=== PATIENT | female | born 1965 | race Caucasian/White ===

== ENCOUNTER 2018-11-02 14:14 | Emergency (ER) | payer BC ==
[2018-11-02 14:46] LABS: Absolute Lymphocytes (CBC) 2.4 K/uL (0.7-4.9); Absolute Monocytes 0.5 K/uL (0.1-1.3); Absolute Neutrophil 3.2 K/uL (1.8-8.0); Eosinophils % 0.6 % (0-4.4); Hematocrit 42.5 % (36.0-45.0); Lymphocytes % 38.8 % (15.3-44.8); MPV 8.5 fL (7.6-11.3); Monocytes % 8.2 % (3.3-12.3); RBC Red Blood Cell Count 4.43 M/uL (3.86-4.86)
[2018-11-02] MEDS ORDERED: MORPHINE 4 MG/ML SYR ONE (14:52)
[2018-11-02] MEDS ORDERED: ONDANSETRON 4 MG/2 ML VIAL ONE (14:52)
[2018-11-02 15:02] LABS: Potassium 4.4 mmol/L (3.5-5.1)
--- NOTE | 2018-11-02 15:29 | RAD REPORT ---
EXAM DESCRIPTION: CT - Stone Protocol - 11/02/2018 3:20 pm CLINICAL HISTORY: Flank pain. ABD PAIN COMPARISON: No comparisons TECHNIQUE: Axial images were obtained without oral or IV contrast. Lack of contrast limits solid org an and vascular assessment. The [id number] spans the entirety of the system partially obscuring uppermost abdomen and lung bases. Coronal reformatted images were obtained and reviewed. All CT scans are performed using dose optimization technique as appropriate and may include automated exposure control or mA/KV adjustment according to patient size. FINDINGS: The lower lung britt are clear. Postsurgical changes affect the stomach. Imaged portions of the liver and spleen show no suspicious findings on non-contrast imaging. The panc reas and adrenal glands are normal. No pathologic lymphadenopathy in the abdomen or pelvis. Bilateral caliceal stones are present including a group of stones in the superior posterior calyx rig ht kidney. No ureter stone or significant hydronephrosis. No bowel obstruction, free air, free fluid or abscess. Normal appendix. No significant bony abnormality. IMPRESSION: Bilateral nephrolithiasis without hydronephrosis.
--- NOTE | 2018-11-02 15:48 | ER ---
Nurse's Notes [facility] Name: Keisha Alves Age: 53 yrs Sex: Female : 1965 Arrival Date: 11/02/2018 Time: 14:16 Bed 16 Private MD: Diagnosis: Lower abdominal pain, unspecified Presentation: 11/02 14:20 Presenting complaint: Patient states: Sudden onset left lower abd pain, hx of frequent la1 kidney stones. Transition of care: patient was not received from another setting of care. Onset of symptoms was November 02, 2018. Risk Assessment: Do you want to hurt yourself or someone else? Patient reports no desire to harm self or others. Initial Sepsis Screen: Does the patient meet any 2 criteria? No. Patient's initial sepsis screen is negative. Does the patient have a suspected source of infection? No. Patient's initial sepsis screen is negative. Care prior to arrival: None. 14:20 Method Of Arrival: Wheelchair la1 14:20 Acuity: JAGRUTI 3 la1 Historical: - Allergies: 14:19 Tape; la1 14:19 Kenalog; la1 14:19 NSAIDS; la1 - PMHx: 14:19 High Cholesterol; Kidney stones; la1 - Immunization history:: Adult Immunizations up to date. - Social history:: Smoking status: Patient/guardian denies using tobacco. - Ebola Screening: : No symptoms or risks identified at this time. Screenin:01 Abuse screen: Denies threats or abuse. Denies injuries from another. Nutritional aj screening: No deficits noted. Tuberculosis screening: No symptoms or risk factors identified. Fall Risk None identified. Assessment: 14:52 General: Appears in no apparent distress. comfortable, Behavior is calm, cooperative, aj appropriate for age. Pain: Denies pain. Neuro: Level of Consciousness is awake, alert, obeys commands, Oriented to person, place, time, situation, Appropriate for age. Respiratory: Airway is patent Respiratory effort is even, unlabored, Respiratory pattern is regular, symmetrical. GI: Abdomen is non-distended, Bowel sounds present X 4 quads. Abd is soft and non tender. GI: Reports lower abdominal pain, nausea. Derm: Skin is intact, is healthy with good turgor, Skin is pink, warm \T\ dry. normal. Vital Signs: 14:20 BP 122 / 86; Pulse 97; Resp 18; Temp 98.6; Pulse Ox 98% on R/A; Weight 57.61 kg; Height la1 5 ft. 2 in. (157.48 cm); Pain 10/10; 16:01 BP 109 / 76; Pulse 78; Resp 19; Pulse Ox 99% on R/A; aj 14:20 Body Mass Index 23.23 (57.61 kg, 157.48 cm) la1 ED Course: 14:16 Patient arrived in ED. as 14:20 Aida Mcdonald FNP-C is [facility]. kb 14:20 Rajan Frye MD is Attending Physician. kb 14:21 Triage completed. la1 14:21 Arm band placed on right wrist. la1 14:25 Roselia Landers, RN is Primary Nurse. aj 14:47 Inserted saline lock: 20 gauge in left antecubital area, using aseptic technique. Blood aj collected. By Matilde Bean. 15:19 CT completed. Patient tolerated procedure well. Patient moved back from CT. mw3 15:19 CT Stone Protocol In Process Unspecified. EDMS 16:01 Patient has correct armband on for positive identification. aj 16:01 No provider procedures requiring assistance completed. IV discontinued, intact, aj bleeding controlled, No redness/swelling at site. Pressure dressing applied. Administered Medications: 14:43 Drug: Zofran 4 mg Route: IVP; Site: left antecubital; aj 16:04 Follow up: Response: Pain is decreased aj 14:44 Drug: morphine 4 mg Route: IVP; Site: left antecubital; aj 16:05 Follow up: Response: Pain is decreased aj Outcome: 15:48 Discharge ordered by . kb 16:01 Discharged to home ambulatory, with family. aj 16:01 Condition: good 16:01 Discharge instructions given to patient, family, Instructed on discharge instructions, follow up and referral plans. medication usage, Demonstrated understanding of instructions, follow-up care, medications, Prescriptions given X 1. 16:05 Patient left the ED. aj Signatures: Dispatcher [employer] EDMO Aida Mcdonald FNP-C FNP-Ckb Myers, Amanda, RN RN aj Martinez, Amelia as Attema, Lee, RN RN la1 Vinita Ordonez mw3
--- NOTE | 2018-11-02 15:48 | EDPHYS ---
Physician Documentation [facility] Name: Keisha Alves Age: 53 yrs Sex: Female : 1965 Arrival Date: 11/02/2018 Time: 14:16 Bed 16 Private MD: ED Physician Rajan Frye HPI: 11/02 15:43 This 53 yrs old Female presents to ER via Wheelchair with complaints of kb Possible Kidney Stone. 15:43 The patient presents with abdominal pain in the left lower quadrant. Onset: The kb symptoms/episode began/occurred 1 hour(s) ago. The symptoms do not radiate. Associated signs and symptoms: none. The symptoms are described as constant, sharp. Modifying factors: The symptoms are alleviated by nothing, the symptoms are aggravated by pressure. Severity of pain: At its worst the pain was moderate severe in the emergency department the pain is unchanged. The patient has experienced similar episodes in the past, multiple times, today's symptoms are similar, to when the patient was apparently diagnosed with kidney stones. The patient has not recently seen a physician. Historical: - Allergies: 14:19 Tape; la1 14:19 Kenalog; la1 14:19 NSAIDS; la1 - PMHx: 14:19 High Cholesterol; Kidney stones; la1 - Immunization history:: Adult Immunizations up to date. - Social history:: Smoking status: Patient/guardian denies using tobacco. - Ebola Screening: : No symptoms or risks identified at this time. ROS: 15:42 Constitutional: Negative for fever, chills, and weight loss, Cardiovascular: Negative kb for chest pain, palpitations, and edema, Respiratory: Negative for shortness of breath, cough, wheezing, and pleuritic chest pain, Back: Negative for injury and pain, MS/Extremity: Negative for injury and deformity, Skin: Negative for injury, rash, and discoloration, Neuro: Negative for headache, weakness, numbness, tingling, and seizure. 15:42 Abdomen/GI: Positive for abdominal pain, Negative for nausea, vomiting, and diarrhea. Exam: 15:40 Constitutional: This is a well developed, well nourished patient who is awake, alert, kb and in no acute distress. Head/Face: Normocephalic, atraumatic. ENT: Nares patent. No nasal discharge, no septal abnormalities noted. Tympanic membranes are normal and external auditory canals are clear. Oropharynx with no redness, swelling, or masses, exudates, or evidence of obstruction, uvula midline. Mucous membranes moist. Neck: Trachea midline, no thyromegaly or masses palpated, and no cervical lymphadenopathy. Supple, full range of motion without nuchal rigidity, or vertebral point tenderness. No Meningismus. Chest/axilla: Normal chest wall appearance and motion. Nontender with no deformity. No lesions are appreciated. Cardiovascular: Regular rate and rhythm with a normal S1 and S2. No gallops, murmurs, or rubs. Normal PMI, no JVD. No pulse deficits. Respiratory: Lungs have equal breath sounds bilaterally, clear to auscultation and percussion. No rales, rhonchi or wheezes noted. No increased work of breathing, no retractions or nasal flaring. Back: No spinal tenderness. No costovertebral tenderness. Full range of motion. Skin: Warm, dry with normal turgor. Normal color with no rashes, no lesions, and no evidence of cellulitis. MS/ Extremity: Pulses equal, no cyanosis. Neurovascular intact. Full, normal range of motion. Neuro: Awake and alert, GCS 15, oriented to person, place, time, and situation. Cranial nerves II-XII grossly intact. Motor strength 5/5 in all extremities. Sensory grossly intact. Cerebellar exam normal. Normal gait. 15:40 Abdomen/GI: Inspection: abdomen appears normal, Bowel sounds: normal, in all quadrants, Palpation: soft, in all quadrants, moderate abdominal tenderness, in the left lower quadrant. Vital Signs: 14:20 BP 122 / 86; Pulse 97; Resp 18; Temp 98.6; Pulse Ox 98% on R/A; Weight 57.61 kg; Height la1 5 ft. 2 in. (157.48 cm); Pain 10/10; 16:01 BP 109 / 76; Pulse 78; Resp 19; Pulse Ox 99% on R/A; aj 14:20 Body Mass Index 23.23 (57.61 kg, 157.48 cm) la1 MDM: 14:22 Patient medically screened. kb 15:40 Data reviewed: vital signs, nurses notes. Data interpreted: Pulse oximetry: on room air kb is 98 %. Interpretation: normal. Counseling: I had a detailed discussion with the patient and/or guardian regarding: the historical points, exam findings, and any diagnostic results supporting the discharge/admit diagnosis, lab results, radiology results, the need for outpatient follow up, a family practitioner, to return to the emergency department if symptoms worsen or persist or if there are any questions or concerns that arise at home. 15:47 ED course: symptoms have resolved, pt is pain free. kb 11/02 14:32 Order name: CBC with Diff kb 11/02 14:32 Order name: Basic Metabolic Panel; Complete Time: 15:06 kb 11/02 14:32 Order name: CT Stone Protocol; Complete Time: 15:31 kb 11/02 14:32 Order name: CBC with Automated Diff; Complete Time: 15:06 EDMS 11/02 14:37 Order name: Urine Dipstick--Ancillary (enter results) eb 11/02 14:27 Order name: Urine Dipstick-Ancillary (obtain specimen); Complete Time: 14:44 kb 11/02 14:32 Order name: IV Start; Complete Time: 14:37 kb Administered Medications: 14:43 Drug: Zofran 4 mg Route: IVP; Site: left antecubital; aj 16:04 Follow up: Response: Pain is decreased aj 14:44 Drug: morphine 4 mg Route: IVP; Site: left antecubital; aj 16:05 Follow up: Response: Pain is decreased aj Disposition: 11/02/18 15:48 Discharged to Home. Impression: Lower abdominal pain, unspecified. - Condition is Stable. - Discharge Instructions: Abdominal Pain, Adult, [id number]. - Prescriptions for Tramadol 50 mg Oral Tablet - take 1 tablet by ORAL route every 8 hours as needed; 12 tablet. - Medication Reconciliation Form, Thank You Letter, Antibiotic Education, Prescription Opioid Use form. - Follow up: Emergency Department; When: As needed; Reason: Worsening of condition. Follow up: Private Physician; When: 2 - 3 days; Reason: Recheck today's complaints, Continuance of care, Re-evaluation by your physician. Signatures: Dispatcher [employer] EDAida Krueger FNP-C FNP-Ckb Myers, Amanda, RN RN aj Ranjeet Tian RN RN la1 Corrections: (The following items were deleted from the chart) 16:05 15:48 11/02/2018 15:48 Discharged to Home. Impression: Lower abdominal pain, aj unspecified. Condition is Stable. Forms are Medication Reconciliation Form, Thank You Letter, Antibiotic Education, Prescription Opioid Use. Follow up: Emergency Department; When: As needed; Reason: Worsening of condition. Follow up: Private Physician; When: 2 - 3 days; Reason: Recheck today's complaints, Continuance of care, Re-evaluation by your physician. kb
[2018-11-02 18:07] LABS: Urine Blood NEGATIVE (NEG); Urine Glucose NEGATIVE (NEG); Urine Protein NEGATIVE (NEG)
== END 2018-11-02 16:05 | disposition home or self-care (01) ==
LOC: ER 14:14
DX: R10.32 Left lower quadrant pain (principal); Z88.6 Allergy status to analgesic agent; Z87.442 Personal history of urinary calculi; Z91.048 Other nonmedicinal substance allergy status
CPT/HCPCS: 36415; 74176; 76377; 80048; 81003; 85025; J2405

== ENCOUNTER 2018-11-08 20:54 | Observation (INO) | payer BC ==
[2018-11-08 21:12] LABS: Absolute Monocytes 0.3 K/uL (0.1-1.3); Absolute Neutrophil 3.6 K/uL (1.8-8.0); Basophils % 0.8 % (0-1.3); Eosinophils % 0.2 % (0-4.4); Hematocrit 40.8 % (36.0-45.0); Lymphocytes % 32.8 % (15.3-44.8); MPV 8.8 fL (7.6-11.3); Monocytes % 5.4 % (3.3-12.3); RBC Red Blood Cell Count 4.09 M/uL (3.86-4.86)
[2018-11-08] MEDS ORDERED: IPRATROPIUM BROM 0.5MG/2.5ML ONE (21:15)
[2018-11-08] MEDS ORDERED: MORPHINE 4 MG/ML SYR ONE (21:15)
[2018-11-08] MEDS ORDERED: PROPOFOL 1,000 MG/100 ML VIAL IV ONE (21:15)
[2018-11-08] MEDS ORDERED: LEVALBUTEROL 1.25 MG/3 ML NEB ONE ×2 (21:15→23:23)
[2018-11-08 21:27] LABS: Arterial Blood Carboxyhemoglob 1.3 % (0-1.5); Blood Gas Oxyhemoglobin 96.2 % (94-97); Blood O2 Saturation 98.8 % (92-98.5)
[2018-11-08] MEDS ORDERED: MIDAZOLAM HCL 2 MG/2 ML INJ ONE ×2 (21:27→21:33)
[2018-11-08] MEDS ORDERED: HYDROMORPHONE HCL 1 MG/ML INJ ONE (21:37)
[2018-11-08] MEDS ORDERED: MAGNESIUM SULFATE 1 gm IVPB 1 GM/100 ML BAG IV ONE (21:47)
[2018-11-08] MEDS ORDERED: NA CHLORIDE 0.9% 1,000 ML ONE (21:47)
[2018-11-08 21:48] LABS: BUN Blood Urea Nitrogen 11 mg/dL (7-18); Bicarbonate 18 mmol/L (21-32); Glucose Level 146 mg/dL (74-106); Sodium Level 134 mmol/L (136-145); Troponin (Emerg Dept Use Only) < 0.02 ng/mL (0.0-0.045)
[2018-11-08 21:55] LABS: Potassium 2.5 mmol/L (3.5-5.1)
--- NOTE | 2018-11-08 22:24 | ER ---
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 Reports pt gave herself 5 breathing tx with no improvement. Upon EMS arrival pt tachycardiac and tachypneic with audible wheezes. States pt has been intubated multiple times in the past due to asthma. Upon arrival to ED pt intubated and respirations assisted via ambu bag. Transition of care: patient was not received from another setting of care. Onset of symptoms was November 08, 2018. Risk Assessment: Do you want to hurt yourself or someone else? Unable to obtain. Initial Sepsis Screen: Does the patient meet any 2 criteria? HR > 90 bpm. No. Patient's initial sepsis screen is negative. Does the patient have a suspected source of infection? No. Patient's initial sepsis screen is negative. Care prior to arrival: Medication(s) given: solu-medrol 125 mg IVP, etomidate 20 mg IVP, rocuronium 90 mg ivp IV initiated. 18 GA, in the left antecubital area, Oxygen administered. via AMBU bag. 20:58 Method Of Arrival: EMS: [facility] aa1 20:58 Acuity: JAGRUTI 1 aa1 Historical: - Allergies: 21:19 Kenalog; aa1 21:19 NSAIDS; aa1 21:19 Tape; aa1 - Home Meds: 21:19 atorvastatin 10 mg oral tab 1 tab once daily [Active]; lansoprazole 30 mg oral cpDR 1 aa1 cap once daily [Active]; tretinoin 0.05 % topical crea once daily [Active]; Potassium Chloride 99 mg Oral once daily [Active]; biotin 10,000 mcg oral cap twice a day [Active]; niacin 500 mg Oral tab daily [Active]; magnesium oxide 250 mg Oral tab daily [Active]; cyanocobalamin (vitamin B-12) 1,000 mcg oral tab daily [Active]; Dulera 200-5 mcg/actuation inhalation HFAA 2 puffs 2 times per day [Active]; Ventolin HFA 90 mcg/actuation Nebulizer HFAA 2 puffs every 4 hours [Active]; ipratropium bromide 0.02 % inhalation soln 2.5 mL 3 times per day [Active]; gabapentin 300 mg oral cap 1 cap 3 times per day [Active]; - PMHx: 21:19 High Cholesterol; Kidney stones; Asthma; aa1 - PSHx: 21:19 Gastric Bypass; aa1 - Immunization history:: Adult Immunizations unknown. - Social history:: Smoking status: unknown. - Ebola Screening: : Unable to complete screening because patient is intubated. - Family history:: not pertinent. - Hospitalizations: : No recent hospitalization is reported. - History obtained from: spouse, EMS. Screenin:00 Abuse screen: Denies threats or abuse. Nutritional screening: No deficits noted. ea Tuberculosis screening: No symptoms or risk factors identified. Fall Risk IV access (20 points). Assessment: 21:00 General: Appears in no apparent distress. Behavior is Pt sedated and intubated. Pain: ea Unable to use pain scale. FLACC scale score is 0 out of 10. Neuro: Pt sedated and intubated. . Cardiovascular: Patient's skin is warm and dry. Respiratory: Pt sedated and intubated Breath sounds are coarse bilaterally. GI: Abdomen is non-distended, Bowel sounds present X 4 quads. Derm: Skin is pink, warm \T\ dry. 21:20 Reassessment: Patient and/or family updated on plan of care and expected duration. Pain ea level reassessed. Pt opening eyes, provider notified, medication order obtained, medication administered. 21:35 Reassessment: Pt awake, requesting ET tube be removed. aa1 21:47 Reassessment: Dr. Frye at bedside requesting RT for extubation. Pt awake and alert. aa1 Respirations even and unlabored. 22:17 Reassessment: Patient appears in no apparent distress at this time. Patient is alert, aa1 oriented x 3, equal unlabored respirations, skin warm/dry/pink. Pt reports she is feeling much better. No respiratory symptoms noted or reported at this time. 22:58 Reassessment: Patient appears in no apparent distress at this time. Patient and/or aa1 family updated on plan of care and expected duration. Pain level reassessed. Patient is alert, oriented x 3, equal unlabored respirations, skin warm/dry/pink. Pt awaiting bed assignment for ICU. 23:37 Reassessment: Patient and/or family updated on plan of care and expected duration. Pain ea level reassessed. Patient is alert, oriented x 3, equal unlabored respirations, skin warm/dry/pink. Report given to receiving nurse on third floor. 23:48 Reassessment: Patient and/or family updated on plan of care and expected duration. Pain ea level reassessed. Patient is alert, oriented x 3, equal unlabored respirations, skin warm/dry/pink. Pt admitted to ICU, pt taken via stretcher per nurse and tech, pt tolerating well. Respiratory at bedside, pt placed on 3 L per nasal cannula, tolerating well. Vital Signs: 21:00 BP 132 / 81; Pulse 123; Resp 16; Temp 97.6; Pulse Ox 100% on ETT vent; Weight 68.04 kg aa1 (R); Pain 0/10; 21:47 BP 124 / 78; Pulse 117; Resp 16; Pulse Ox 97% on ETT vent; aa1 22:30 BP 123 / 61; Pulse 110; Resp 19; Pulse Ox 100% ; ea 23:46 BP 128 / 70; Pulse 112; Resp 18; Temp 98.0; Pulse Ox 98% on 3 lpm NC; Pain 3/10; ea ED Course: 10:59 Second set of blood cultures drawn. kj1 20:57 Patient arrived in ED. rn 20:57 Rajan Frye MD is Attending Physician. rn 21:00 Arm band placed on left wrist. Patient placed in an exam room, on a stretcher. aa1 21:00 Patient has correct armband on for positive identification. Placed in gown. Bed in low ea position. Call light in reach. Side rails up X2. 21:05 Maintain EMS IV. Dressing intact. Good blood return noted. Site clean \T\ dry. Gauge \T\ aa 1 site: 18g LAC. 21:08 XRAY CXR (1 view) In Process Unspecified. EDMS 21:11 Triage completed. aa1 21:19 Initial lab(s) drawn, by me, sent to lab. EKG done, by ED staff, reviewed by Rajan Frye MD. 21:52 Notified ED physician of a critical lab result(s). Potassium 2.5. aa1 22:23 Rich Welch MD is Hospitalizing Provider. rn 22:40 First set of blood cultures drawn by ut. kj1 22:58 Celia Leonard, BAKARI is Primary Nurse. ea 23:18 No provider procedures requiring assistance completed. Patient admitted, IV remains in aa1 place. Administered Medications: Discontinued: Propofol 5 mcg/kg/min IV at calculated rate continuous; titrate per protocol (titrate by 5-10mcg/kg/min every 10 min to max rate of 50 mcg/kg/min) 21:10 Drug: Propofol 5 mcg/kg/min Route: IV; Rate: calculated rate; Site: left antecubital; aa1 21:10 Drug: morphine 4 mg Route: IVP; Site: left antecubital; aa1 21:30 Follow up: Response: No adverse reaction ea 21:10 Drug: Xopenex (3) 1.25 mg Route: Inhalation; aa1 21:20 Drug: Versed 3 mg Route: IVP; Site: left antecubital; ea 21:25 Follow up: Response: No adverse reaction ea 21:24 Not Given (given by EMS INSURANCE FOLLOW UP SPECIALIST): SOLU-Medrol 125 mg IVP once aa1 21:25 Drug: Versed 3 mg Route: IVP; Site: left antecubital; ea 21:30 Follow up: Response: No adverse reaction ea 21:30 Drug: Dilaudid 1 mg Route: IVP; Site: left antecubital; ea 22:00 Follow up: Response: No adverse reaction; Pain is decreased ea 21:40 Drug: Magnesium Sulfate 1 grams Route: IVPB; Infused Over: 1 hrs; Site: left aa1 antecubital; 22:45 Follow up: Response: No adverse reaction; IV Status: Completed infusion ea 21:40 Drug: NS 0.9% 1000 ml Route: IV; Rate: 1000 ml; Site: left antecubital; aa1 22:59 Follow up: IV Status: Completed infusion; IV Intake: 1000ml ea 23:39 Follow up: Response: No adverse reaction; IV Status: Completed infusion; IV Intake: ea 1000ml 23:18 Drug: Xopenex 1.25 mg Route: Inhalation; aa1 Intake: 22:59 IV: 1000ml; Total: 1000ml. ea 23:39 IV: 1000ml; Total: 2000ml. ea Outcome: 22:23 Decision to Hospitalize by Provider. rn 23:00 Instructed on the need for admit. ea 23:37 Admitted to Med/surg accompanied by nurse, accompanied by tech, room 3, Report called ea to Receiving nurse on third floor. 23:37 Condition: stable 11/09 00:04 Patient left the ED. ea Signatures: Dispatcher [employer] EDMS Kamini Pemberton, RN RN aa1 Rajan Frye MD MD rn Antunez, Elena, RN RN ea Jackson, Kandis kj1
--- NOTE | 2018-11-08 22:24 | EDPHYS ---
Physician Documentation [facility] Name: Keisha Alves Age: 53 yrs Sex: Female : 1965 Arrival Date: 11/08/2018 Time: 20:57 Bed 3 Private MD: ED Physician Rajan Frye HPI: 11/08 21:26 This 53 yrs old Female presents to ER via EMS with complaints of sob. rn 21:26 The patient has shortness of breath at rest. Onset: The symptoms/episode began/occurred rn just prior to arrival. Duration: The symptoms are continuous. The patient's shortness of breath is aggravated by nothing, is alleviated by nothing. Severity of symptoms: At their worst the symptoms were severe in the emergency department the symptoms have improved. The patient has experienced similar episodes in the past. EMS reports called out for SOB, has hx of asthma, has needed to be intubated 3 times, marked distress, intubated in field by EMS, states was fine, drinking today, and sob only for about 2 hours, denied chest pain, no known heart problems. . Historical: - Allergies: 21:19 Kenalog; aa1 21:19 NSAIDS; aa1 21:19 Tape; aa1 - Home Meds: 21:19 atorvastatin 10 mg oral tab 1 tab once daily [Active]; lansoprazole 30 mg oral cpDR 1 aa1 cap once daily [Active]; tretinoin 0.05 % topical crea once daily [Active]; Potassium Chloride 99 mg Oral once daily [Active]; biotin 10,000 mcg oral cap twice a day [Active]; niacin 500 mg Oral tab daily [Active]; magnesium oxide 250 mg Oral tab daily [Active]; cyanocobalamin (vitamin B-12) 1,000 mcg oral tab daily [Active]; Dulera 200-5 mcg/actuation inhalation HFAA 2 puffs 2 times per day [Active]; Ventolin HFA 90 mcg/actuation Nebulizer HFAA 2 puffs every 4 hours [Active]; ipratropium bromide 0.02 % inhalation soln 2.5 mL 3 times per day [Active]; gabapentin 300 mg oral cap 1 cap 3 times per day [Active]; - PMHx: 21:19 High Cholesterol; Kidney stones; Asthma; aa1 - PSHx: 21:19 Gastric Bypass; aa1 - Immunization history:: Adult Immunizations unknown. - Social history:: Smoking status: unknown. - Ebola Screening: : Unable to complete screening because patient is intubated. - Family history:: not pertinent. - Hospitalizations: : No recent hospitalization is reported. - History obtained from: spouse, EMS. ROS: 21:26 Unable to obtain ROS due to patient is on ventilator. rn Exam: 21:26 Constitutional: This is a well developed, well nourished patient who is sedated, rn intubated Head/Face: Normocephalic, atraumatic. Eyes: Pupils equal round and reactive to light, extra-ocular motions intact. Lids and lashes normal. Conjunctiva and sclera are non-icteric and not injected. Cornea within normal limits. Periorbital areas with no swelling, redness, or edema. ENT: MMM, no oral swelling Cardiovascular: Tachycardic, regular, no murmur Respiratory: Coarse bilateral breath sounds, with exp wheezing, intubated and bagged Abdomen/GI: soft, non-tender MS/ Extremity: Pulses equal, no cyanosis. Neurovascular intact. Full, normal range of motion. Equal circumference. Neuro: Sedated, intubated, some response to pain Vital Signs: 21:00 BP 132 / 81; Pulse 123; Resp 16; Temp 97.6; Pulse Ox 100% on ETT vent; Weight 68.04 kg aa1 (R); Pain 0/10; 21:47 BP 124 / 78; Pulse 117; Resp 16; Pulse Ox 97% on ETT vent; aa1 22:30 BP 123 / 61; Pulse 110; Resp 19; Pulse Ox 100% ; ea 23:46 BP 128 / 70; Pulse 112; Resp 18; Temp 98.0; Pulse Ox 98% on 3 lpm NC; Pain 3/10; ea MDM: 20:57 Patient medically screened. rn 21:26 ED course: Pt requiring several doses of sedatives and pain meds to get comfortable, is rn waking up, is trying to communicate. 22:21 Differential diagnosis: asthma, Bronchitis pneumonia, Pneumothorax pulmonary edema. rn Data reviewed: vital signs, nurses notes, lab test result(s), EKG, radiologic studies, plain films, and as a result, I will admit patient. Counseling: I had a detailed discussion with the patient and/or guardian regarding: the historical points, exam findings, and any diagnostic results supporting the discharge/admit diagnosis, lab results, radiology results, the need for further work-up and treatment in the hospital. Response to treatment: the patient's symptoms have markedly improved after treatment, and as a result, I will admit patient. 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 . 11/08 20:58 Order name: ABG rn 11/08 20:58 Order name: Troponin (emerg Dept Use Only); Complete Time: 22:13 rn 11/08 20:58 Order name: Blood Culture Adult (2) rn 11/08 20:58 Order name: BMP; Complete Time: 22:13 rn 11/08 20:58 Order name: CBC with Diff; Complete Time: 22:13 rn 11/08 20:59 Order name: ABG Arterial Blood Gas; Complete Time: 22:13 EDMS 11/08 20:58 Order name: XRAY CXR (1 view); Complete Time: 22:33 rn 11/08 21:08 Order name: Flu rn 11/08 20:58 Order name: EKG; Complete Time: 20:59 rn 11/08 20:58 Order name: Cardiac monitoring; Complete Time: 21:15 rn 11/08 20:58 Order name: EKG - Nurse/Tech; Complete Time: 21:27 rn 11/08 20:58 Order name: IV Saline Lock; Complete Time: 21:15 rn 11/08 20:58 Order name: Labs collected and sent; Complete Time: 21:15 rn 11/08 20:58 Order name: O2 Per Protocol; Complete Time: 21:15 rn 11/08 20:58 Order name: O2 Sat Monitoring; Complete Time: 21:15 rn Administered Medications: Discontinued: Propofol 5 mcg/kg/min IV at calculated rate continuous; titrate per protocol (titrate by 5-10mcg/kg/min every 10 min to max rate of 50 mcg/kg/min) 21:10 Drug: Propofol 5 mcg/kg/min Route: IV; Rate: calculated rate; Site: left antecubital; aa1 21:10 Drug: morphine 4 mg Route: IVP; Site: left antecubital; aa1 21:30 Follow up: Response: No adverse reaction ea 21:10 Drug: Xopenex (3) 1.25 mg Route: Inhalation; aa1 21:20 Drug: Versed 3 mg Route: IVP; Site: left antecubital; ea 21:25 Follow up: Response: No adverse reaction ea 21:24 Not Given (given by EMS INVENTORY TRANSCRIBER): SOLU-Medrol 125 mg IVP once aa1 21:25 Drug: Versed 3 mg Route: IVP; Site: left antecubital; ea 21:30 Follow up: Response: No adverse reaction ea 21:30 Drug: Dilaudid 1 mg Route: IVP; Site: left antecubital; ea 22:00 Follow up: Response: No adverse reaction; Pain is decreased ea 21:40 Drug: Magnesium Sulfate 1 grams Route: IVPB; Infused Over: 1 hrs; Site: left aa1 antecubital; 22:45 Follow up: Response: No adverse reaction; IV Status: Completed infusion ea 21:40 Drug: NS 0.9% 1000 ml Route: IV; Rate: 1000 ml; Site: left antecubital; aa1 22:59 Follow up: IV Status: Completed infusion; IV Intake: 1000ml ea 23:39 Follow up: Response: No adverse reaction; IV Status: Completed infusion; IV Intake: ea 1000ml 23:18 Drug: Xopenex 1.25 mg Route: Inhalation; aa1 Disposition: 22:21 Critical Care:. rn Disposition: 11/08/18 22:23 Hospitalization ordered by Rich Welch for Observation. Preliminary diagnosis are Unspecified asthma with (acute) exacerbation, Dyspnea, unspecified. - Bed requested for Intensive Care Unit. - Status is Observation. ea - Condition is Stable. - Problem is new. - Symptoms have improved. UTI on Admission? No Critical care time excluding procedures: 22:21 Critical care time: Bedside Care: 25 minutes, Consultation: 3 minutes, Family rn Intervention: 5 minutes. Total time: 33 minutes Signatures: Dispatcher [employer] EDKamini Powers RN RN aa1 Rajan Frye MD MD rn Garcia, Cindy, RN RN cg Antunez, Elena, RN RN ea Corrections: (The following items were deleted from the chart) 23: 22:23 Hospitalization Ordered by Rich Welch MD for Observation. Preliminary cg diagnosis is Unspecified asthma with (acute) exacerbation; Dyspnea, unspecified. Bed requested for Telemetry/MedSurg (observation). Status is Observation. Condition is Stable. Problem is new. Symptoms have improved. UTI on Admission? No. rn 11/09 00:04 11/08 23:11/08/2018 22:23 Hospitalization Ordered by Rich Welch MD for ea Observation. Preliminary diagnosis is Unspecified asthma with (acute) exacerbation; Dyspnea, unspecified. Bed requested for Intensive Care Unit. Status is Observation. Condition is Stable. Problem is new. Symptoms have improved. UTI on Admission? No. cg
--- NOTE | 2018-11-08 22:28 | RAD REPORT ---
EXAM DESCRIPTION: Adela Single View11/08/2018 9:09 pm CLINICAL HISTORY: Shortness of breath COMPARISON: none FINDINGS: An endotracheal tube has its tip well above the javon. The lungs appear clear of acute infiltrate. The heart is normal size
--- NOTE | 2018-11-08 23:01 | P.HP ---
Certification for Inpatient Patient admitted to: Observation With expected LOS: <2 Midnights Practitioner: I am a practitioner with admitting privileges, knowledge of patient current condition, hospital course, and medical plan of care. Services: Services provided to patient in accordance with Admission requirements found in Title 42 Section 412.3 of the Code of Federal Regulations Patient History Date of Service: 11/08/18 Reason for admission: asthma exacerbation History of Present Illness: Ms Alves is a 53 years old woman with history of moderate persistent asthma on theratment with LABA/steroids inh, and ventolin PRN, who was doing well until this afternoon, when she suddenly start with SOB and dry cough. 911 were called , when EMS arrived the patient was tachypneic and tachycardic with audible wheezing, she was intubated on the field and transfer to ER. No histoy of fever or chills, Lab work shows normal WBC, afebrile in ED, CXR no acute abnormalities. During her stay in ER, sedation was difficult, however, she clinically improved and was extubated. Then she was able to say that she was on the grass, and that was the trigger for her SOB. She is currently on 8 L of oxygen support, O2 sat 100%, will start to wean her oxygen down. Home medications list reviewed: Yes - Past Medical/Surgical History -: asthma -: dyslipidemia -: gastric bypass - Family History Family History: Reviewed- Non-Contributory - Social History Smoking Status: Former smoker Alcohol use: Yes CD- Drugs: No Place of Residence: Home Review of Systems 10-point ROS is otherwise unremarkable Physical Examination - Physical Exam General: Alert, In no apparent distress HEENT: Atraumatic, PERRLA, Mucous membr. moist/pink, EOMI, Sclerae nonicteric Neck: Supple, 2+ carotid pulse no bruit, No LAD, Without JVD or thyroid abnormality Respiratory: Diminished, Other (no wheezing at this moment) Cardiovascular: Regular rate/rhythm, Normal S1 S2 Gastrointestinal: Normal bowel sounds, No tenderness Musculoskeletal: No tenderness Integumentary: No rashes Neurological: Normal speech, Normal strength at 5/5 x4 extr, Normal tone, Normal affect Lymphatics: No axilla or inguinal lymphadenopathy - Studies Laboratory Data (last 24 hrs) 11/08/18 21:00: WBC 6.0, Hgb 13.5, Hct 40.8, Plt Count 304 11/08/18 21:00: Sodium 134 L, Potassium 2.5 L*, BUN 11, Creatinine 0.78, Glucose 146 H Assessment and Plan - Problems (Diagnosis) (1) Acute asthma exacerbation Current Visit: Yes Status: Acute Qualifiers: Asthma severity: moderate Asthma persistence: persistent Qualified Code(s ): J45.41 - Moderate persistent asthma with (acute) exacerbation (2) Acute respiratory failure Current Visit: Yes Status: Acute Qualifiers: Respiratory failure complication: hypoxia Qualified Code(s): J96.01 - Acute respiratory failure with hypoxia (3) Dyslipidemia Current Visit: Yes Status: Acute - Plan The patient remain stable after been extubated in ED, she will be admitted in ICU for close monitoring overnight, will continue with shceduled breathing treatments, IV steroids and oxygen support. Consult laundry technician. - Advance Directives Does patient have a Living Will: No Does patient have a Durable POA for Healthcare: No - Code Status/Comfort Care Code Status Assessed: Yes Code Status: Full Code
[2018-11-08] MEDS ORDERED: NA CHLORIDE 0.9% 1,000 ML IV SCH (23:35)
[2018-11-08] MEDS ORDERED: ONDANSETRON 4 MG/2 ML VIAL IV PRN (23:35)
[2018-11-09] MEDS: KCL 20 MEQ/100 mL IVPB 20 MEQ/100 ML BAG IV SCH ×3 (00:41→04:12)
[2018-11-09] MEDS: PHENOL 1.4% ORAL SPRAY 180ML MM PRN ×3 (00:46→09:33)
[2018-11-09] MEDS ORDERED: TRAZODONE 50 MG TABLET PO ONE (00:52)
[2018-11-09] MEDS: METHYLPREDNISOLONE 125 MG INJ IV SCH ×2 (00:54→06:02)
[2018-11-09 02:02] VITALS: BMI 25.6
[2018-11-09] MEDS: ALBUTEROL 2.5 MG/3 ML NEB SOL NEB SCH ×3 (04:00→08:28)
[2018-11-09] MEDS: IPRATROPIUM BROM 0.5MG/2.5ML NEB SCH ×3 (04:00→08:28)
[2018-11-09 06:23] LABS: Absolute Lymphocytes (CBC) 0.4 K/uL (0.7-4.9); Basophils % 0.2 % (0-1.3); Lymphocytes % 6.1 % (15.3-44.8); MPV 9.3 fL (7.6-11.3); Monocytes % 0.7 % (3.3-12.3); RBC Red Blood Cell Count 3.87 M/uL (3.86-4.86)
[2018-11-09 06:44] LABS: Potassium 4.7 mmol/L (3.5-5.1)
[2018-11-09] MEDS ORDERED: MAGNESIUM SULFATE 1 gm IVPB 1 GM/100 ML BAG IV ONE (08:00)
[2018-11-09] MEDS ORDERED: HOME MED 1 EA UNK (Niacin [Niacin] 500 MG) PO SCH (09:00)
[2018-11-09] MEDS ORDERED: HOME MED 1 EA UNK (Lansoprazole [Prevacid] 30 MG) PO SCH (09:00)
[2018-11-09] MEDS ORDERED: ENOXAPARIN 40 MG/0.4 ML SQ SCH (09:00)
--- NOTE | 2018-11-09 09:58 | P.CNS ---
Date of Consult: 11/09/18 Chief Complaint: asthma exacerbation History of Present Illness: Patient is 53 years of age with a history of asthma usually well controlled she is out of town from [facility] still at on a daily basis once a twice a day with Ventolin on a p.r.n. basis recently she has been exposed to a lot of allergens developed acute respiratory distress started coughing was intubated on the field rapidly extubated last admission was 5-6 months ago this came on rather rapidly she is currently doing well alert oriented responsive cooperative in no distress no other complaints Allergies adhesive tape Allergy (Verified 11/09/18 02:27) Rash NSAIDS (Non-Steroidal Anti-Inflamma Allergy (Verified 11/09/18 02:27) ulcer triamcinolone [From Kenalog] Allergy (Verified 11/09/18 02:27) unknown Home Medications: Albuterol Sulfate [Ventolin Hfa] 2 puff IH Q4HP PRN 11/09/18 Atorvastatin Calcium [Lipitor] 10 mg PO BEDTIME 11/09/18 Biotin 10,000 mcg PO BID 11/09/18 Ipratropium/Albuterol Sulfate [Iprat-Albut 0.5-3(2.5) mg/3 ml] 1 vial NEB TIDP PRN 11/09/18 Lansoprazole [Prevacid] 30 mg PO DAILY 11/09/18 Magnesium Oxide [Magnesium] 250 mg PO DAILY 11/09/18 Mometasone/Formoterol [Dulera 200 Mcg/5 Mcg Inhaler] 2 puff IH BIDP PRN Niacin 500 mg PO DAILY 11/09/18 Pediatric Multivit Comb No.76 [Flintstones Complete] 1 each PO DAILY 11/09/18 Vit B12/Lmefolate Ca/Vit B6/B2 [Metafolbic Tablet] 1 each PO DAILY 11/09/18 - Past Medical/Surgical History Diabetic: No -: asthma -: dyslipidemia -: kidney stones -: gastric bypass -: left knee repair -: tonsillectomy -: hysterectomy -: -: breast reduction -: lumbar surgery -: left shoulder surgery - Family History Father Medical History: Diabetes, Cancer Mother Medical History: Heart disease, Hypertension Sister Medical History: Heart disease, Hypertension, Diabetes - Social History Smoking Status: Unknown if ever smoked Alcohol use: Yes CD- Drugs: No Caffeine use: Yes Place of Residence: Home Review of Systems 10-point ROS is otherwise unremarkable Physical Examination Temp Pulse Resp BP Pulse Ox 97.5 F 101 H 15 107/57 L 100 11/09/18 04:00 11/09/18 06:00 11/09/18 06:00 11/09/18 06:00 11/09/18 06:00 General: Alert, In no apparent distress Respiratory: Clear to auscultation bilaterally Cardiovascular: No edema, Regular rate/rhythm Gastrointestinal: Normal bowel sounds, Soft and benign Laboratory Data (last 24 hrs) 11/08/18 21:00: WBC 6.0, Hgb 13.5, Hct 40.8, Plt Count 304 11/08/18 21:00: Sodium 134 L, Potassium 2.5 L*, BUN 11, Creatinine 0.78, Glucose 146 H - Problems (1) Acute asthma exacerbation Current Visit: Yes Status: Acute Plan: Patient is 53 years of age admitted with exacerbation of her asthma the head as acute severe attack patient is currently doing well can be discharged home on prednisone 10 mg once a twice a day p.r.n. basis patient to use a full dose of Dulera 2 puffs twice a day Ventolin on a p.r.n. basis. Patient does use Flonase uses Tums on a p.r.n. 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
[2018-11-09] MEDS ORDERED: IPRATROPIUM BROM 0.5MG/2.5ML NEB PRN (10:00)
[2018-11-09] MEDS ORDERED: DULERA 200/5 (MOMETASONE/FORMOTEROL) INHALER IH PRN (10:00)
[2018-11-09] MEDS ORDERED: NIACIN 500 MG SR TAB PO SCH (10:00)
[2018-11-09 12:35] VITALS: BP 123/68; TEMP 98.1
[2018-11-09 12:41] VITALS: O2SAT 100
[2018-11-09] MEDS ORDERED: predniSONE 20 MG TAB PO SCH (21:00)
[2018-11-09] MEDS ORDERED: ATORVASTATIN 10 MG TAB PO SCH (21:00)
--- NOTE | 2018-11-09 21:03 | EKG ---
Test Date: 2018-11-08 Test Time: 21:16:09 [place] Operator: LIZZIE MEASUREMENT RESULTS: Intervals: Rate: 122 AK: 170 QRSD: 104 QT: 312 QTc: 444 [place]: P: 72 AK: 170 QRS: 45 T: 245 INTERPRETIVE STATEMENTS: Sinus tachycardia ST & T wave abnormality, consider inferior ischemia ST & T wave abnormality, consider anterolateral ischemia Abnormal ECG No previous ECG available for comparison Electronically Signed On 11-09-18 21:02:33 CDT by Vishnu Massey
--- NOTE | 2018-11-10 01:41 | DS ---
Date of Discharge: 11/09/2018 Consultants: Dr. Taylor with Pulmonology. Discharge Diagnoses: 1.Acute respiratory failure secondary to. 2.Acute asthma exacerbation, moderate persistent. 3.Dyslipidemia. Hospital Course: The patient is a 53-year-old female from [place] who had acute asthma exacerbatio n due to allergens. The patient had been lying in the grass. She is highly allergic. The patient h ad to be intubated on the field by EMS, was brought in. Subsequently extubated. The patient now sat urating 100% on 2 L. The patient was weaned off her oxygen and was able to breathe well on room air. The patient was seen by tire mold tester, Dr. Taylor, and did well, and he did not recommend any fur ther ICU stay and cleared her for discharge. The patient did have some electrolyte abnormalities whi ch were corrected. The patient was slightly tachycardic due to the multiple albuterol treatments she received. The patient overall did well. Her influenza screen was negative. Blood cultures at the time of discharge were pending. However, she has no signs of sepsis, not hypotensive or symptomatic. The patient was then cleared for discharge. She was able to ambulate without difficulty. She foll ows up closely with her tire mold tester in [place]. She will be on a steroid taper. She takes inhal ers at home as well. Activity: As tolerated. Diet: Heart healthy. Followup: Follow up with PCP in 2 to 3 days. Follow up with primary tire mold tester in [place] in 2 weeks. Return to ER for worsening condition. Medications: As per medication reconciliation list. Physical Examination: General: Awake, alert, oriented, not in any acute distress. CV: S1, S2. No murmurs. Respiratory: Moving air well bilaterally. No wheezing. Gastrointestinal: Abdomen is soft, nontender, nondistended. Positive bowel sounds. Extremities: No clubbing, cyanosis, or edema. SA/MODL Voice ID: [id number] Report ID: [id number]
[2018-11-10] MEDS ORDERED: PANTOPRAZOLE 40MG TABLET PO SCH (07:30)
== END 2018-11-09 12:10 | disposition home or self-care (01) ==
LOC: ER 20:54 → ERHOLD 22:48 → 3RD-ICU 23:43
PROVIDERS: ADMIT Internal Medicine; ATTEND Internal Medicine
DX: J45.901 Unspecified asthma with (acute) exacerbation (principal); J96.01 Acute respiratory failure with hypoxia; E78.5 Hyperlipidemia, unspecified; Z98.84 Bariatric surgery status
CPT/HCPCS: 36415; 71045; 80048; 80320; 82805; 83735; 84484; 85025; 87040; 87804; 93005; 94002; 96365; 96375; 99291; G0378; J1170; J1650; J2250; J2405; J2704; J2930; J3475; J7030